=== PATIENT | male | born 1955 | race Asian ===

== ENCOUNTER → 2018-04-07 | Day surgery (SDC) | payer MEDICARE ==
[~2018-04-07] MED LIST: ALDACTONE25 MG PO; APAP500 PO; ASPIR 8181 MG PO; ASPIRIN325 PO; ATORVASTATIN CA40 MG PO; CARVEDILOL12.5 MG PO; CARVEDILOL25 MG PO; CENTRUM SILVER1 EAC2 PO; COZAAR 50 MG TA50 M2 PO; DIABETA 2.5MG2.5 MG PO; DIABETA 5MG TABL5 MG PO; GLYBURIDE 2.52.5 MG PO; GLYBURIDE 5 MG T5 M1 PO; HYDRALAZINE 2525 M1 PO; HYDROCODONE-AP1 EAC6 PO; IMDUR 30 MG TAB30 M1 PO; JANUVIA25 MG PO; LASIX 20 MG TAB20 MG PO; LASIX 40 MG TAB40 M1 PO; LASIX 40 MG TAB40 M2 PO; LISINOPRIL5 MG PO; MULTIVITAMIN PO; MULTIVITAMINS PO; NEURONTIN100 MG PO; NITROGLYCERIN0.4 MG SUBLING; NORCO 5-325 TA1 EACH PO; NORVASC5 MG PO; NOVOLOG100 UNIT/1 SUBQ; PACERONE 200 M200 MG PO; PANTOPRAZOLE SO40 M1 PO; PLAVIX 75 MG TA75 M1 PO; PROTONIX40 M1 PO; VITAMIN D2000 UNIT PO
[2018-04-07 07:04] LABS: HEMATOCRIT 39.9 % (42.0-52.0); HEMOGLOBIN 13.6 gm/dL (14.0-18.0); MCH 31.5 pg (26.0-34.0); MCV 92.7 fL (80.0-100.0); MPV 7.4 fl. (7.2-11.1); RBC 4.31 mil/uL (4.50-6.00); RDW-CV 14.9 % (10.5-14.5); WBC 7.3 thou/uL (4.0-11.0)
[2018-04-07 07:11] LABS: CREATININE 4.9 mg/dL (0.6-1.3); POTASSIUM 4.3 mmol/L (3.5-5.1)
[2018-04-07 07:16] LABS: ALBUMIN 4.2 g/dL (3.4-5.0); TOTAL BILIRUBIN 0.4 mg/dL (<0.1-1.0); TOTAL PROTEIN 8.2 g/dL (6.4-8.2)
--- NOTE | 2018-04-07 16:31 | EKG ---
[place] [address] ELECTROCARDIOGRAM REPORT Name: FLOYDBRENDAN SEGURASONIA P Room: [facility]#: [id number] Admission: 04/07/18 Attend Phys: Nic Mijares MD Discharge: Date of : 57 Report #: [id number] THIS REPORT FOR: //name// [facility] Test Date: 2018-04-07 Test Time: 07:40:41 Pat Name: SONIA BARRIENTOS Department: Room: Gender: M Supervisor Dock: : 1955 Requested By: Nic Mijares Order Number: [id number] Reading MD: Daquan Fonseca Measurements Intervals [place] Rate: 62 P: 70 [place]: 182 QRS: 81 QRSD: 97 T: 187 QT: 398 QTc: 405 Interpretive Statements Sinus rhythm Borderline right axis deviation LVH w/ repol abnormalities, possible ischemia Compared to ECG 09/04/2016 22:47:39 Possible ischemia now present Early repolarization no longer present Electronically Signed On 04-07-2018 16:31:05 CDT by Daquan Fonseca [email or web address] <ELECTRONICALLY SIGNED> By: Daquan Fonseca MD, [facility] 04/07/18 1631 0740 9 Daquan Fonseca MD, [facility] /EPI
--- NOTE | 2018-04-11 18:06 | PATH ---
[address] [address] PATHOLOGY RPT PROCEDURE Name: SONIA BARRIENTOS Room: [facility]#: [id number] Admission: 04/07/18 Date of : 57 Discharge: Report #: [id number] Path Case #: [id number] [facility] Accession Number: [id number] . 01 Material submitted: . RIGHT UPPER ARM MOLE . 01 Clinical history: . ESRD . 02 Diagnosis: Right upper arm mole: - Polypoid, pigmented intradermal nevus, margins free of involvement through planes of sections examined. (CANDI:pit 04/11/2018) QTP/04/11/2018 . 02 Electronically signed: . Jeremy Hernández MD, Pathologist NPI- [id number] . 01 Gross description: . The specimen is received in formalin, labeled "Sonia Barrientos, right upper arm mole", consist of a 0.8 x 0.4 cm townsend skin biopsy. The skin surface has a 0.5 x 0.4 x 0.3 cm dark brown firm nodule. The specimen is inked black, bisected and entirely submitted in A1. . . ([facility]; 04/07/2018) SHS/SHS . 02 Pathologist provided ICD-10: D22.61 . 02 CPT . 863502 Performed at: 01 [facility] [address] [place] [address] [address], [place] [id number] MD Balwinder Orellana MD Phone: [phone] Performed at: [address] [address] [address], [place], [place] [id number] MD Jeremy Hernández MD Phone: [phone]
--- NOTE | 2018-04-28 17:34 | OP ---
[address] [address] OPERATIVE REPORT Name: SONIA BARRIENTOS Room: [facility]#: [id number] Admission: 04/07/18 Attend Phys: Nic Mijares MD Discharge: Date of : 57 Report #: [id number] THIS REPORT FOR: //name// CC: Jhony Anayeli Mijares DATE OF SERVICE: 04/07/2018 PREOPERATIVE DIAGNOSES: 1. End-stage renal disease. 2. Mole, right upper arm. POSTOPERATIVE DIAGNOSES: 1. End-stage renal disease. 2. Mole, right upper arm. PROCEDURE: 1. Brachiocephalic AV fistula formation, right upper extremity. 2. Excision of mole, right arm. SURGEON: Nic Mijares MD FINAL INSTALLER INSPECTOR: Boaz Hong. COMPLICATIONS: None. ESTIMATED BLOOD LOSS: 10 mL. SPECIMENS: Includes mole excision to pathology. ANESTHESIA: General. INDICATIONS FOR PROCEDURE: The patient is a very pleasant 62-year-old male who presents with end-stage renal disease and a mole on his right arm. We plan to proceed with AV fistula placement and mole excision today. Informed consent was obtained from the patient with risks including but not limited to bleeding, infection, need for further surgery, pain, , heart attack, stroke, need for further resection if the mole comes back malignant. The patient understood these risks and was agreeable to proceed. DESCRIPTION OF PROCEDURE: The patient was taken to the OR and placed in supine position. After adequate general anesthesia was initiated, timeout was performed. Right upper extremity was prepped and draped in usual sterile fashion. I created a transverse incision just above the antecubital fossa. Sharp and blunt dissection were carried down to cephalic vein, [place] [address] OPERATIVE REPORT Name: SONIA BARRIENTOS Room: [facility]#: [id number] Admission: 04/07/18 Attend Phys: Nic Mijares MD Discharge: Date of : 57 Report #: [id number] adequate for fistula formation. Sharp and blunt dissection were carried on the brachial artery, was controlled proximally and distally with vessel loops. I ligated the vein distally with silk ties and clips. I transposed the vein over on to the artery, spatulating the end of the branch point. I created a longitudinal arteriotomy in the brachial artery. I created an end-to-side anastomosis with the vein using a running 6-0 Prolene suture. At the completion of anastomosis, there was adequate hemostasis and excellent blood flow in the vein with a palpable thrill running at the patient's arm. I irrigated the wound with antibiotic saline, closed the wound in multiple layers using 3-0 Vicryl and Stratafix for the skin. Incision was dressed with Dermabond. I then turned my attention to the mole. I excised the mole with an elliptical incision, full thickness of skin. I passed the mole off the field as a specimen. I controlled bleeding with electrocautery. I closed the incision with a single Monocryl stitch. The patient tolerated above procedures well and was taken alert and awake to recovery room in good condition with palpable thrill in his fistula. All needle, instrument counts were correct at the end of the case. <ELECTRONICALLY SIGNED> By: Fred James DO 04/28/18 1734 1002 1101Rad Mijares MD /nt
== END | disposition home or self-care (01) ==
LOC: M.SUR 06:09
PROVIDERS: Surgery Vascular Surgery
DX: I13.2 Hypertensive heart and chronic kidney disease with heart failure and with stage 5 chronic kidney disease, or end stage renal disease (principal); N18.6 End stage renal disease; D23.61 Other benign neoplasm of skin of right upper limb, including shoulder; E11.22 Type 2 diabetes mellitus with diabetic chronic kidney disease; I25.2 Old myocardial infarction; I25.10 Atherosclerotic heart disease of native coronary artery without angina pectoris; I50.9 Heart failure, unspecified; Z79.899 Other long term (current) drug therapy; Z79.82 Long term (current) use of aspirin; Z98.890 Other specified postprocedural states

== ENCOUNTER → 2018-07-03 | Outpatient (CLI) | payer MEDICARE ==
[~2018-07-03] VITALS: Ht 162.6 cm; Wt 59.0 kg
[2018-07-03 13:12] LABS: HEMATOCRIT 33.2 % (42.0-52.0); HEMOGLOBIN 11.2 gm/dL (14.0-18.0); MCH 31.9 pg (26.0-34.0); MCHC 33.9 g/dL (28.0-37.0); MCV 94.1 fL (80.0-100.0); MPV 7.8 fl. (7.2-11.1); RBC 3.53 mil/uL (4.50-6.00); RDW-CV 14.8 % (10.5-14.5); WBC 8.5 thou/uL (4.0-11.0)
[2018-07-03 13:15] VITALS: BP 124/56
[2018-07-03 13:22] LABS: PROTIME 10.7 Seconds (9.20-11.50)
[2018-07-03 13:24] LABS: CALCIUM 9.5 mg/dL (8.5-10.1); CREATININE 5.8 mg/dL (0.6-1.3); POTASSIUM 4.9 mmol/L (3.5-5.1)
[2018-07-03 13:29] LABS: ALBUMIN 3.9 g/dL (3.4-5.0); TOTAL BILIRUBIN 0.5 mg/dL (<0.1-1.0); TOTAL PROTEIN 7.6 g/dL (6.4-8.2)
--- NOTE | 2018-07-05 08:48 | OP ---
[address] [address] OPERATIVE REPORT Name: SONIA BARRIENTOS [id number] Admission: 07/03/18 Attend Phys: Pravin Hammonds DO Discharge: Date of : 57 Report #: [id number] THIS REPORT FOR: //name// CC: Pravin Hammonds Jhony Guadalupe DATE OF SERVICE: 07/03/2018 PREOPERATIVE DIAGNOSIS: End-stage renal disease with right upper extremity swelling, status post arteriovenous fistula creation. POSTOPERATIVE DIAGNOSIS: End-stage renal disease with right upper extremity swelling, status post arteriovenous fistula creation. OPERATION: 1. Ultrasound-guided antegrade access to the right upper extremity brachiocephalic fistula. 2. Right upper extremity fistulogram. 3. Superior vena cavogram. 4. Angioplasty of the right brachiocephalic vein. SURGEON: Pravin Hammonds DO BUILDING ECONOMIST: EVAN Perez ANESTHESIA: Sedation with local for approximately 30 minutes at my discretion. IMPLANTS: None. SPECIMENS: None. COMPLICATIONS: None. FINDINGS: Fistulogram with reflux fistulogram demonstrated patent fistula circuit without significant stenosis. He had a few small collateral side branches emanating from the mid portion of the cephalic vein, but this was not flow limiting and not diverting too much competitive flow away. His cephalic arch and subclavian vein were patent without significant stenosis. He had a right IJ tunneled dialysis catheter in place. 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 Following angioplasty of the innominate vein occlusion, he had good antegrade flow without any reflux up the IJ. There was mild residual stenosis. His arm already had reduced swelling. CLINICAL HISTORY: The patient is a 62-year-old man with end-stage renal disease, currently dialyzing partially through [place] [address] OPERATIVE REPORT Name: SONIA BARRIENTOS Room: [facility]#: [id number] Admission: 07/03/18 Attend Phys: Pravin Hammonds DO Discharge: Date of : 57 Report #: [id number] catheter and one cannulation of the right upper extremity fistula. He has significant right upper extremity swelling that is causing pain and difficulty with cannulation. He was brought in today for fistulogram for intervention. DESCRIPTION OF PROCEDURE: After informed consent was obtained, the patient was taken to the operating room and placed on the OR bed in supine position. He was administered sedation by the nurse at my discretion. This was for a total of about 30 minutes. Right upper extremity was prepped and draped in the usual sterile fashion. A full timeout was performed identifying correct patient and procedure. Using ultrasound guidance, the brachiocephalic fistula in the right arm was accessed and these ultrasound images were preserved. This was done after anesthetizing the skin and subcutaneous tissues with lidocaine anesthetic. Using Seldinger technique, a microwire and microsheath were placed. I then performed the right upper extremity fistulogram with reflux fistulogram with the findings noted above. I then exchanged out for a 7-Bhutanese sheath over Glidewire Advantage. I positioned the Glidewire Advantage into the inferior vena cava. Followup imaging confirmed intraluminal position of the inferior vena cava and the wire was replaced. I then performed the serial angioplasties of the innominate vein occlusion, first with a 10 mm Altheimer balloon, subsequently with a 12 mm and 14 mm Allis balloons. This had a good result with minimal residual stenosis and good antegrade flow through the innominate vein. There was no further reflux of contrast up the internal jugular vein. His arm was already less tense. At this point, satisfied with the result, the wire and the sheath were removed and a 4-0 Monocryl pursestring suture was placed at the access site. Manual pressure was held for 5 minutes. Once hemostasis was assured, sterile dressing was applied and a light Tim wrap was applied from the hand to the upper arm. Tim wrap can be removed along with the dressing at dialysis tomorrow. I have encouraged them to try and access the fistula with both needles. Hopefully, they will be able to continue access with the fistula and then will be able to remove the catheter. He would likely require future intervention of his innominate vein because it will likely give recurrent stenosis. <ELECTRONICALLY SIGNED> By: Pravin Hammonds DO 07/05/18 0848 1545 1746Aesha Hammonds DO /nt
== END | disposition home or self-care (01) ==
LOC: M.INT 12:01
PROVIDERS: Surgery
DX: T82.590A Other mechanical complication of surgically created arteriovenous fistula, initial encounter (principal); I13.2 Hypertensive heart and chronic kidney disease with heart failure and with stage 5 chronic kidney disease, or end stage renal disease; E11.22 Type 2 diabetes mellitus with diabetic chronic kidney disease; N18.6 End stage renal disease; I50.9 Heart failure, unspecified; E78.5 Hyperlipidemia, unspecified; Z95.1 Presence of aortocoronary bypass graft; Z98.41 Cataract extraction status, right eye; Z98.42 Cataract extraction status, left eye; Z98.890 Other specified postprocedural states; Z82.49 Family history of ischemic heart disease and other diseases of the circulatory system; Z79.899 Other long term (current) drug therapy

== ENCOUNTER 2018-07-06 14:36 | Emergency (ER) | payer MEDICARE ==
[~2018-07-06] VITALS: Ht 162.6 cm; Wt 61.8 kg
[2018-07-06 15:07] LABS: ABSOLUTE BASOPHILS 0.1 thou/uL (0.0-0.2); ABSOLUTE EOSINOPHILS 0.3 thou/uL (0.0-0.7); ABSOLUTE MONOCYTES 0.5 thou/uL (0.0-1.2); ABSOLUTE NEUTROPHILS 4.9 thou/uL (1.6-8.1); BASOPHILS 1.3 %; EOSINOPHILS 4.4 %; LYMPHOCYTES 15.2 %; MCH 31.9 pg (26.0-34.0); MCHC 34.3 g/dL (28.0-37.0); MONOCYTES 7.3 %; MPV 7.5 fl. (7.2-11.1); NUCLEATED RBCS 0 /100WBC; PLATELET COUNT* 169 thou/uL (150-400); POLYS 71.8 %; RBC 3.44 mil/uL (4.50-6.00); RDW-CV 14.6 % (10.5-14.5); WBC 6.9 thou/uL (4.0-11.0)
[2018-07-06 15:15] LABS: ANION GAP 3 mmol/L (7-16); BUN 10 mg/dL (7-18); CALCIUM 9.5 mg/dL (8.5-10.1); CHLORIDE 99 mmol/L (98-107); CO2 34 mmol/L (21-32); CREATININE 3.2 mg/dL (0.6-1.3); GLUCOSE 158 mg/dL (70-99); POTASSIUM 4.2 mmol/L (3.5-5.1); SODIUM 136 mmol/L (136-145)
[2018-07-06 15:25] LABS: ALBUMIN 3.9 g/dL (3.4-5.0); ALKALINE PHOSPHATASE 72 U/L (46-116); MAGNESIUM 1.8 mg/dL (1.8-2.4); SGOT 22 U/L (15-37); SGPT 33 U/L (30-65); TOTAL BILIRUBIN 0.6 mg/dL (<0.1-1.0); TOTAL PROTEIN 7.7 g/dL (6.4-8.2); TROPONIN-I LEVEL <0.06 ng/mL (<0.06)
--- NOTE | 2018-07-06 16:41 | EKG ---
[place] [address] ELECTROCARDIOGRAM REPORT Name: SONIA BARRIENTOS Room: [facility]#: [id number] Admission: 07/06/18 Attend Phys: Discharge: Date of : 57 Report #: [id number] THIS REPORT FOR: //name// [facility] ED Test Date: 2018-07-06 Test Time: 14:39:23 Pat Name: SONIA BARRIENTOS Department: Room: Gender: Nurse Infection Control: Cristofer WILKS : 1955 Requested By: Peri Pandya Order Number: [id number] MD: Cm Brown Measurements Intervals [place] Rate: 71 P: 81 NM: 183 QRS: 72 QRSD: 94 T: 165 QT: 375 QTc: 408 Interpretive Statements Sinus rhythm Probable left atrial enlargement Probable LVH with secondary repol abnrm Compared to ECG 04/07/2018 07:40:41 Possible ischemia no longer present Electronically Signed On 07-06-2018 16:41:27 CDT by Cm Brown [email or web address] <ELECTRONICALLY SIGNED> By: Cm Brown MD, FACC 07/06/18 1641 1439 1439 Cm Brown MD, [facility] /EPI
[2018-07-06 16:51] LABS: URINE BILIRUBIN NEGATIVE (Negative); URINE BLOOD TRACE (Negative); URINE CLARITY CLEAR; URINE COLOR YELLOW; URINE GLUCOSE-RANDOM 1+ (Negative); URINE KETONES NEGATIVE (Negative); URINE LEUKOCYTES-REFLEX NEGATIVE (Negative); URINE NITRITE-REFLEX NEGATIVE (Negative); URINE PROTEIN 2+ (Negative); URINE SPECIFIC GRAVITY 1.015 (1.005-1.030); URINE UROBILINOGEN 0.2 E.U./dl (0.2-1.0)
[2018-07-06 17:11] LABS: CRYSTALS None Seen /LPF (None Seen); HYALINE CASTS 0-3 Few /LPF (None Seen); MUCUS None Seen strn/LPF (None Seen); SQUAMOUS NONE SEEN /LPF (0-3); URINE RBC 0-2 Rare /HPF (0-2)
[2018-07-06 17:12] LABS: BACTERIA-REFLEX None Seen /HPF (None Seen); URINE WBC-REFLEX None Seen /HPF (0-5)
[2018-07-06 17:32] VITALS: BP 134/53
== END 2018-07-06 17:33 | disposition home or self-care (01) ==
LOC: M.ERS 14:36
PROVIDERS: Physician Assistant Surgical
DX: R53.1 Weakness (principal); R06.02 Shortness of breath; E78.5 Hyperlipidemia, unspecified; I12.9 Hypertensive chronic kidney disease with stage 1 through stage 4 chronic kidney disease, or unspecified chronic kidney disease; E11.22 Type 2 diabetes mellitus with diabetic chronic kidney disease; N18.9 Chronic kidney disease, unspecified; Z95.1 Presence of aortocoronary bypass graft

== ENCOUNTER → 2019-04-03 | Outpatient (CLI) | payer MEDICARE ==
[2019-04-03 08:48] LABS: CHOLESTEROL 110 mg/dL (<200); HDL CHOLESTEROL 34 mg/dL (>40); LDL CHOLESTEROL 47 mg/dL (<100); SGPT 45 U/L (30-65); TC:HDL 3.2 Ratio (Not establshd); TRIGLYCERIDE 147 mg/dL (<150); VLDL 29 mg/dL (<40)
[2019-04-03 09:04] LABS: SERUM ASSESSMENT Clear
== END ==
LOC: M.LAB 08:01
PROVIDERS: Internal Medicine Interventional Cardiology
DX: I25.10 Atherosclerotic heart disease of native coronary artery without angina pectoris (principal); E78.2 Mixed hyperlipidemia

== ENCOUNTER 2019-10-30 15:18 | Emergency (ER) | payer MEDICARE ==
[~2019-10-30] VITALS: Ht 162.6 cm; Wt 54.4 kg
[2019-10-30 15:56] LABS: HEMATOCRIT 34.8 % (42.0-52.0); HEMOGLOBIN 12.1 gm/dL (14.0-18.0); MCH 31.7 pg (26.0-34.0); MCHC 34.8 g/dL (28.0-37.0); MCV 90.9 fL (80.0-100.0); MPV 7.1 fl. (7.2-11.1); RBC 3.82 mil/uL (4.50-6.00); RDW-CV 15.7 % (10.5-14.5); WBC 5.9 thou/uL (4.0-11.0)
[2019-10-30 16:23] VITALS: BP 184/67
== END 2019-10-30 16:25 | disposition home or self-care (01) ==
LOC: M.ERS 15:18
PROVIDERS: Personal Emergency Response Attendant
DX: T82.838A Hemorrhage due to vascular prosthetic devices, implants and grafts, initial encounter (principal); I11.0 Hypertensive heart disease with heart failure; E11.9 Type 2 diabetes mellitus without complications; E78.5 Hyperlipidemia, unspecified; Z95.1 Presence of aortocoronary bypass graft; Z98.890 Other specified postprocedural states; Y92.89 Other specified places as the place of occurrence of the external cause

== ENCOUNTER 2020-06-24 16:18 | Inpatient (IN) | payer MEDICARE ==
[~2020-06-24] VITALS: Ht 160 cm; Wt 62.4 kg
--- NOTE | ~2020-06-24 | CON ---
[address] [address] CONSULTATION Name: SONIA BARRIENTOS Room: [address] IN .R.#: [id number] Admission: 06/24/20 Attend Phys: Radha Parker MD Discharge: Date of : 57 Report #: [id number] THIS REPORT FOR: //name// cc: Jhony Guadalupe MD, Khanh MD ~ THIS REPORT FOR: //name// CONSULTING PHYSICIAN: Dr. Parker. REASON FOR CONSULTATION: End-stage kidney disease. HISTORY OF PRESENT ILLNESS: A 64-year-old gentleman with a history of end-stage kidney disease, who had dialysis yesterday, comes in with a viral pneumonitis and diarrhea. He was tested for COVID-19 and was found to be positive. His dialysis unit was informed. He has been started on empiric steroids and is currently satting at 95% on room air. REVIEW OF SYSTEMS: Constitutional, psych, heme, eyes, ENT, respiratory, cardiac, GI, , endocrine, all negative except as documented above. PAST MEDICAL HISTORY: End-stage kidney disease, on hemodialysis, non-insulin dependent diabetes, hypertension, dyslipidemia, history of CABG, history of retinal detachment, history of shingles. FAMILY HISTORY: Not pertinent in this 64-year-old gentleman. SOCIAL HISTORY: No tobacco. CURRENT MEDICATIONS: Reviewed. PHYSICAL EXAMINATION: VITAL SIGNS: Blood pressure 126/66, pulse 76, respirations 16, temperature 35.9. GENERAL: The patient is not in any distress. He was not directly examined as he is in COVID-19 enhanced respiratory precautions and with the need to preserve PPE and minimize exposure during this pandemic, he was not physically examined. LABORATORY DATA: Sodium 136, potassium 4.4, chloride 97, bicarbonate 30, BUN 33, creatinine 5.4, glucose 319, calcium 8.3, phosphorus 6. White cell count of 3.6, hemoglobin 9.8, platelets 86. ASSESSMENT: 1. End-stage kidney disease, on hemodialysis Tuesdays, , Saturdays at the [facility]. 2. COVID-19 pneumonia. 3. Non-insulin dependent diabetes. 4. [place] [address] CONSULTATION Name: SONIA BARRIENTOS Room: [address] IN [facility].#: [id number] Admission: 06/24/20 Attend Phys: Radha Parker MD Discharge: Date of : 57 Report #: [id number] 5. History of retinal detachment. 6. Coronary artery disease with history of coronary artery bypass graft. 7. Vitamin D deficiency. PLAN: 1. No acute indications for dialysis today. 2. Thrombocytopenia, defer to Internal Medicine. 3. COVID-19 pneumonia, being managed by Internal Medicine. 4. He is on gabapentin 100 mg 3 times a day. Suggest dosing this once a day. This can be dosed as 300 mg daily and can be given after dialysis on his dialysis days, so that is not removed with dialysis. 5. His dialysis unit was informed of his COVID-19 positivity. He will likely need to be arranged to go to one of the isolation dialysis units for COVID-19 positive patients upon discharge. Case management can help arrange this. We will follow for dialysis needs. Thank you for requesting my opinion in the care and management of this patient. By: 1309 1332Abisana Calix MD /nt
[2020-06-24 16:23] VITALS: BP 126/75
[2020-06-24 17:57] LABS: ABSOLUTE LYMPHOCYTES 0.5 thou/uL (0.8-5.3); ABSOLUTE MONOCYTES 0.5 thou/uL (0.0-1.2); ABSOLUTE NEUTROPHILS 2.5 thou/uL (1.6-8.1); BASOPHILS 0.6 %; HEMATOCRIT 27.9 % (42.0-52.0); HEMOGLOBIN 9.8 gm/dL (14.0-18.0); LYMPHOCYTES 14.2 %; MCH 30.9 pg (26.0-34.0); MCHC 35.2 g/dL (28.0-37.0); MCV 87.7 fL (80.0-100.0); MONOCYTES 13.6 %; MPV 7.8 fl. (7.2-11.1); NUCLEATED RBCS 0 /100WBC; PLATELET COUNT* 86 thou/uL (150-400); POLYS 71.6 %; RBC 3.18 mil/uL (4.50-6.00); RDW-CV 13.8 % (10.5-14.5); WBC 3.6 thou/uL (4.0-11.0)
[2020-06-24 18:04] LABS: APTT 33.1 Seconds (25.0-31.3); PROTIME 10.7 Seconds (9.20-11.50)
[2020-06-24 18:05] LABS: CALCIUM 8.7 mg/dL (8.5-10.1); CREATININE 4.3 mg/dL (0.6-1.3)
[2020-06-24 18:15] LABS: ALBUMIN 3.4 g/dL (3.4-5.0); MAGNESIUM 1.9 mg/dL (1.8-2.4); TOTAL BILIRUBIN 0.7 mg/dL (<0.1-1.0)
[2020-06-24 18:19] LABS: POTASSIUM 2.8 mmol/L (3.5-5.1)
[2020-06-25] VITALS (7 sets, daily range): BP systolic 96–172; BP diastolic 53–87
[2020-06-25 10:31] LABS: CALCIUM 8.3 mg/dL (8.5-10.1)
[2020-06-25 10:33] LABS: MAGNESIUM 2.2 mg/dL (1.8-2.4); POTASSIUM 4.4 mmol/L (3.5-5.1)
[2020-06-25 10:38] LABS: CREATININE 5.4 mg/dL (0.6-1.3)
--- NOTE | 2020-06-25 17:45 | EKG ---
[place] [address] ELECTROCARDIOGRAM REPORT Name: SONIA BARRIENTOS Room: [address] ADM [place] .R.#: [id number] Admission: 06/24/20 Attend Phys: Radha Parker, Discharge: Date of : 57 Date of Service: 06/24/20 1754 Report #: [id number] THIS REPORT FOR: //name// [facility] ED Test Date: 2020-06-24 Test Time: 17:54:55 Pat Name: SONIA BARRIENTOS Department: Room: [facility] Gender: M Butcherette: CCD : 1955 Requested By: Rad Hoyos Order Number: [id number] MD: Daquan Fonseca Measurements Intervals [place] Rate: 80 P: 62 [place]: 174 QRS: 75 QRSD: 92 T: 153 QT: 374 QTc: 432 Interpretive Statements Sinus rhythm Probable left atrial enlargement Left ventricular hypertrophy ST segment depression diffusely. Consider repolarization abnormality versus ischemia Baseline wander in lead(s) II,III,aVF Compared to ECG 07/06/2018 14:39:23 No significant changes Electronically Signed On 06-25-2020 17:45:48 CDT by Daquan Fonseca [email or web address] <ELECTRONICALLY SIGNED> By: Daquan Fonseca MD, FACC 06/25/20 1745 53 53 Daquan Fonseca MD, FACC /EPI
[2020-06-26 00:33] VITALS: BP 135/51
[2020-06-26 04:42] VITALS: BP 156/67
[2020-06-26 04:53] LABS: HEMATOCRIT 28.3 % (42.0-52.0); HEMOGLOBIN 9.9 gm/dL (14.0-18.0); MCH 31.3 pg (26.0-34.0); MCHC 34.9 g/dL (28.0-37.0); MCV 89.5 fL (80.0-100.0); MPV 8.8 fl. (7.2-11.1); RBC 3.17 mil/uL (4.50-6.00); RDW-CV 13.4 % (10.5-14.5); WBC 9.1 thou/uL (4.0-11.0)
[2020-06-26 05:16] LABS: ALBUMIN 3.1 g/dL (3.4-5.0); CALCIUM 9.1 mg/dL (8.5-10.1); MAGNESIUM 2.4 mg/dL (1.8-2.4); POTASSIUM 3.8 mmol/L (3.5-5.1); TOTAL BILIRUBIN 0.3 mg/dL (<0.1-1.0); TOTAL PROTEIN 6.7 g/dL (6.4-8.2)
[2020-06-26 05:17] LABS: CREATININE 7.4 mg/dL (0.6-1.3)
[2020-06-26 08:00] VITALS: BP 140/67
[2020-06-26] MEDS ORDERED: PREDNISONE 10 M10 MG PO (10:27)
[2020-06-26] MEDS ORDERED: AZITHROMYCIN500 MG PO (10:27)
[2020-06-26 11:47] VITALS: BP 140/67
[2020-06-26 14:23] VITALS: BP 140/67
== END 2020-06-26 15:05 | disposition home or self-care (01) | DRG 177 ==
LOC: M.ERS 16:18 → M.2W 17:41 → M.TBA-ER 17:41 → M.2W 06-25 00:30
PROVIDERS: Family Medicine; Internal Medicine; ADMIT Internal Medicine; ATTEND Internal Medicine
PROC: 5A1D70Z Performance of Urinary Filtration, Intermittent, Less than 6 Hours Per Day (ICD-10-PCS; principal; 2020-06-26)
DX: U07.1 COVID-19 (principal); N18.6 End stage renal disease; J12.89 Other viral pneumonia; I12.0 Hypertensive chronic kidney disease with stage 5 chronic kidney disease or end stage renal disease; E11.22 Type 2 diabetes mellitus with diabetic chronic kidney disease; R77.8 Other specified abnormalities of plasma proteins; E87.6 Hypokalemia; E78.5 Hyperlipidemia, unspecified; B34.9 Viral infection, unspecified; I25.10 Atherosclerotic heart disease of native coronary artery without angina pectoris; E55.9 Vitamin D deficiency, unspecified; E86.9 Volume depletion, unspecified; Z95.1 Presence of aortocoronary bypass graft; Z79.82 Long term (current) use of aspirin; Z79.899 Other long term (current) drug therapy; Z99.2 Dependence on renal dialysis; R19.7 Diarrhea, unspecified

== ENCOUNTER 2020-06-28 03:51 | Inpatient (IN) | payer MEDICARE ==
[~2020-06-28] VITALS: Ht 162.6 cm; Wt 62.6 kg
[~2020-06-28 03:51] MED LIST changes: +AZITHROMYCIN500 MG PO; +PREDNISONE 10 M10 MG PO
[2020-06-28 04:09] VITALS: BP 152/64
[2020-06-28 05:01] LABS: HEMATOCRIT 23.7 % (42.0-52.0); HEMOGLOBIN 8.3 gm/dL (14.0-18.0); MCH 31.6 pg (26.0-34.0); MCHC 34.9 g/dL (28.0-37.0); MCV 90.6 fL (80.0-100.0); MPV 8.3 fl. (7.2-11.1); NUCLEATED RBCS 0 /100WBC; PLATELET COUNT* 112 thou/uL (150-400); RBC 2.62 mil/uL (4.50-6.00); RDW-CV 13.5 % (10.5-14.5); WBC 7.7 thou/uL (4.0-11.0)
[2020-06-28 05:05] LABS: BE 1.2 mmol/L (-2 to +3); PCO2 32.3 mmHg (35.0-45.0); PO2 108.2 mmHg (75.0-100.0); pH 7.494 (7.340-7.450)
[2020-06-28 05:20] LABS: CALCIUM 7.6 mg/dL (8.5-10.1); CREATININE 7.1 mg/dL (0.6-1.3); POTASSIUM 3.4 mmol/L (3.5-5.1)
[2020-06-28 05:25] LABS: ALBUMIN 2.5 g/dL (3.4-5.0); MAGNESIUM 1.9 mg/dL (1.8-2.4); TOTAL BILIRUBIN 0.5 mg/dL (<0.1-1.0); TOTAL PROTEIN 5.9 g/dL (6.4-8.2)
[2020-06-28 07:17] LABS: ABSOLUTE LYMPHOCYTES 0.2 thou/uL (0.8-5.3); ABSOLUTE MONOCYTES 0.3 thou/uL (0.0-1.2); ABSOLUTE NEUTROPHILS 7.2 thou/uL (1.6-8.1)
[2020-06-28 07:18] LABS: HYPOCHROMASIA 1+; PLATELET ESTIMATE DECREASED
[2020-06-28 09:00] VITALS: BP 149/73
[2020-06-28 10:56] LABS: URINE BILIRUBIN NEGATIVE (Negative); URINE BLOOD 2+ (Negative); URINE CLARITY CLEAR; URINE COLOR YELLOW; URINE GLUCOSE-RANDOM 1+ (Negative); URINE KETONES NEGATIVE (Negative); URINE LEUKOCYTES-REFLEX NEGATIVE (Negative); URINE NITRITE-REFLEX NEGATIVE (Negative); URINE PROTEIN 2+ (Negative); URINE SPECIFIC GRAVITY 1.025 (1.005-1.030); URINE UROBILINOGEN 0.2 E.U./dl (0.2-1.0)
[2020-06-28 11:03] LABS: SQUAMOUS 0-3 Few /LPF (0-3)
[2020-06-28 11:04] LABS: CRYSTALS None Seen /LPF (None Seen); FINE GRANULAR CASTS 0-3 Few /LPF (None Seen); HYALINE CASTS 0-3 Few /LPF (None Seen); MUCUS 0-3 Light strn/LPF (None Seen); URINE RBC 0-2 Rare /HPF (0-2); URINE WBC-REFLEX 0-5 Rare /HPF (0-5)
[2020-06-28 13:30] VITALS: BP 126/63
[2020-06-28 13:50] VITALS: BP 149/73
[2020-06-29] VITALS: BP 134/67
[2020-06-29 04:00] VITALS: BP 128/68
[2020-06-29 04:58] LABS: HEMOGLOBIN 10.1 gm/dL (14.0-18.0); MCH 31.4 pg (26.0-34.0); MCHC 34.9 g/dL (28.0-37.0); MCV 90.1 fL (80.0-100.0); MPV 9.1 fl. (7.2-11.1); RBC 3.22 mil/uL (4.50-6.00); RDW-CV 13.7 % (10.5-14.5); WBC 8.4 thou/uL (4.0-11.0)
[2020-06-29 05:40] LABS: ALBUMIN 2.5 g/dL (3.4-5.0); CALCIUM 8.8 mg/dL (8.5-10.1); MAGNESIUM 2.4 mg/dL (1.8-2.4); TOTAL BILIRUBIN 0.6 mg/dL (<0.1-1.0); TOTAL PROTEIN 6.6 g/dL (6.4-8.2)
[2020-06-29 05:41] LABS: CREATININE 5.8 mg/dL (0.6-1.3); POTASSIUM 4.6 mmol/L (3.5-5.1)
[2020-06-29 09:30] VITALS: BP 124/60
[2020-06-29 12:08] VITALS: BP 101/42
[2020-06-29 17:24] VITALS: BP 101/50
[2020-06-30] VITALS: BP 109/55
[2020-06-30 03:05] LABS: HIV-1/HIV-2 ANTIBODY Non Reactive (Non Reactive)
[2020-06-30 04:00] VITALS: BP 118/65
[2020-06-30 04:55] LABS: HEMATOCRIT 27.2 % (42.0-52.0); HEMOGLOBIN 9.3 gm/dL (14.0-18.0); MCH 30.6 pg (26.0-34.0); MCHC 34.1 g/dL (28.0-37.0); MCV 89.8 fL (80.0-100.0); MPV 8.7 fl. (7.2-11.1); RBC 3.02 mil/uL (4.50-6.00); RDW-CV 14.1 % (10.5-14.5); WBC 11.3 thou/uL (4.0-11.0)
[2020-06-30 05:15] LABS: ALBUMIN 2.2 g/dL (3.4-5.0); CALCIUM 8.8 mg/dL (8.5-10.1); MAGNESIUM 2.7 mg/dL (1.8-2.4); POTASSIUM 4.6 mmol/L (3.5-5.1); TOTAL BILIRUBIN 0.6 mg/dL (<0.1-1.0)
[2020-06-30 05:16] LABS: CREATININE 7.8 mg/dL (0.6-1.3)
[2020-06-30 09:04] LABS: URINE BILIRUBIN NEGATIVE (Negative); URINE BLOOD TRACE (Negative); URINE CLARITY CLEAR; URINE COLOR YELLOW; URINE GLUCOSE-RANDOM TRACE (Negative); URINE KETONES NEGATIVE (Negative); URINE LEUKOCYTES-REFLEX NEGATIVE (Negative); URINE NITRITE-REFLEX NEGATIVE (Negative); URINE PROTEIN 2+ (Negative); URINE SPECIFIC GRAVITY 1.025 (1.005-1.030); URINE UROBILINOGEN 0.2 E.U./dl (0.2-1.0)
[2020-06-30 09:18] LABS: SQUAMOUS 0-3 Few /LPF (0-3)
[2020-06-30 09:19] LABS: BACTERIA-REFLEX >30 Many /HPF (None Seen); URINE RBC 0-2 Rare /HPF (0-2); URINE WBC-REFLEX None Seen /HPF (0-5)
[2020-06-30 09:20] LABS: FINE GRANULAR CASTS 0-3 Few /LPF (None Seen); HYALINE CASTS 4-10 Moderate /LPF (None Seen); MUCUS 0-3 Light strn/LPF (None Seen)
[2020-06-30 09:21] LABS: AMORPHOUS URATES Few /LPF (None Seen); CRYSTALS None Seen /LPF (None Seen)
[2020-06-30 11:57] VITALS: BP 114/61
--- NOTE | 2020-06-30 13:34 | EKG ---
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: IMELDA : 1955 Requested By: Clifton Beard Order Number: [id number] Reading MD: Fred Oliva Measurements Intervals [place] Rate: 94 P: 54 [place]: 170 QRS: 81 QRSD: 100 T: 254 QT: 340 QTc: 426 Interpretive Statements Sinus rhythm Probable left atrial enlargement Borderline right axis deviation Nonspecific repol abnormality, diffuse leads Baseline wander in lead(s) II,III,aVL,aVF Compared to ECG 06/24/2020 17:54:55 no change Electronically Signed On 06-30-2020 13:34:23 CDT by Fred Oliva [email or web address] <ELECTRONICALLY SIGNED> By: Fred Oliva MD, [facility] 06/30/20 1334 3 Fred Oliva MD, [facility] /EPI
[2020-06-30 15:50] VITALS: BP 124/66
[2020-06-30 15:55] VITALS: BP 95/40
[2020-06-30 20:00] VITALS: BP 106/60
[2020-07-01 00:19] VITALS: BP 118/62
[2020-07-01 02:06] LABS: HEPATITIS B SURFACE AG Negative (Negative)
[2020-07-01 04:00] VITALS: BP 120/62
[2020-07-01 04:39] LABS: ABSOLUTE LYMPHOCYTES 0.1 thou/uL (0.8-5.3); ABSOLUTE MONOCYTES 0.5 thou/uL (0.0-1.2); ABSOLUTE NEUTROPHILS 9.8 thou/uL (1.6-8.1); HEMATOCRIT 27.5 % (42.0-52.0); HEMOGLOBIN 9.5 gm/dL (14.0-18.0); LYMPHOCYTES 1.2 %; MCHC 34.6 g/dL (28.0-37.0); MCV 89.6 fL (80.0-100.0); MONOCYTES 4.7 %; MPV 9.1 fl. (7.2-11.1); NUCLEATED RBCS 0 /100WBC; PLATELET COUNT* 178 thou/uL (150-400); POLYS 94.1 %; RBC 3.07 mil/uL (4.50-6.00); RDW-CV 13.9 % (10.5-14.5); WBC 10.4 thou/uL (4.0-11.0)
[2020-07-01 04:57] LABS: ALBUMIN 2.4 g/dL (3.4-5.0); CALCIUM 9.1 mg/dL (8.5-10.1); MAGNESIUM 3.1 mg/dL (1.8-2.4); POTASSIUM 4.4 mmol/L (3.5-5.1); TOTAL BILIRUBIN 0.9 mg/dL (<0.1-1.0); TOTAL PROTEIN 6.2 g/dL (6.4-8.2)
[2020-07-01 04:58] LABS: CREATININE 9.3 mg/dL (0.6-1.3)
[2020-07-01 08:00] VITALS: BP 125/66
[2020-07-01 13:11] VITALS: BP 92/57
--- NOTE | 2020-07-01 14:31 | CON ---
[address] [address] CONSULTATION Name: SONIA BARRIENTOSDEONDRE Room: [address] IN .R.#: [id number] Admission: 06/28/20 Attend Phys: Ramana Dorado MD Discharge: Date of : 57 Report #: [id number] THIS REPORT FOR: //name// cc: Jhony Guadalupe MD, Khanh MD ~ THIS REPORT FOR: //name// DATE OF SERVICE: 06/30/2020 Consult has been requested by Dr. Parker. INDICATION FOR CONSULTATION: Acute respiratory failure secondary to COVID-19 pneumonia. HISTORY OF PRESENT ILLNESS: This is a 64-year-old gentleman whose past medical history includes a history of end-stage renal disease as well as coronary artery disease with congestive heart failure. His last echo from 2013 that I have available shows a left ventricular ejection fraction of 35-40%. The patient was now admitted earlier this month to this hospital, was treated for COVID-19. Did receive steroids as well as azithromycin. The patient was not hypoxemic and therefore did not receive remdesivir or convalescent plasma. He subsequently was discharged, however, became hypoxemic. O2 saturations dropped into the 70s and therefore was readmitted. Has now been treated with Solu-Medrol. He has in addition been started on remdesivir. Initially, he was reported to have had high-grade fevers as well as a cough with small amounts of sputum production and acute shortness of breath. The patient also is reported to have been having diarrhea. He does have end-stage renal disease and gets hemodialysis on a Tuesday, , Tuesday schedule. The patient initially was maintaining O2 saturation at 5 liters nasal cannula. This increased this morning to 10 mL. The patient at one point dropped O2 saturation to 90% on 10 liters nasal cannula. When I saw this patient, I was considering reviewing with Nephrology this morning regarding requesting an additional dialysis today for fluid removal and also if convalescent plasma is administered, the patient would need dialysis at the same time. The patient, however, at that time was fairly comfortable at lunchtime sitting in a chair and was in fact saturating 97% on 10 liters nasal cannula as checked by the SPIKE DRIVER. This reading, however, is not charted in [facility]. Therefore, I decided to hold off on reviewing with Nephrology. The patient's antibiotics were broadened by the primary service this morning and I did agree with it and did not make any change. This evening, I noticed the patient was charted to again be 90% on 10 liters and therefore, I considered moving him to a negative pressure room for administration of a BiPAP; however, when the patient's RN rechecked the patient's O2 saturation, he in fact is now saturating 95% on 5 liters nasal cannula and therefore, I held off on the same. The patient's blood pressure is acceptable, however, has been on the lower side. [place] [address] CONSULTATION Name: SANDRA BARRIENTOSZeny FRIEDMAN Room: [address] IN .R.#: [id number] Admission: 06/28/20 Attend Phys: Ramana Dorado MD Discharge: Date of : 57 Report #: [id number] 12 questions for review of systems except as mentioned above. PAST MEDICAL HISTORY: Coronary artery disease status post CABG; congestive heart failure, last available echo from 2013 shows a left ventricular ejection fraction of 35-40%. He may have had more echo since I do not have those available. He had a device implanted in his chest at one point. I do not have details available. The chest x-rays now do not show any device; however, there is a wire, which still is going into his left ventricle. Diabetes, hypertension, hyperlipidemia, cataract surgery, retinal detachment requiring surgery, other eye surgeries, renal failure, chronic. Has a fistula in the left arm. ALLERGIES: No known drug allergies. SOCIAL HISTORY: No known history of smoking, ethanol abuse or drug abuse. CURRENT MEDICATIONS: List in [facility] reviewed. HOME MEDICATIONS: List in [facility] reviewed. FAMILY HISTORY: There is no pertinent family history. PHYSICAL EXAMINATION: GENERAL: He is alert, awake and oriented. Did not appear to be in any distress. His O2 saturations are as described above. VITAL SIGNS: His last pulse was 63 and a blood pressure 110/55, respiratory rate 18-20. His temperature is 37.2. HEENT: Head is normocephalic and atraumatic. NECK: Does not show raised JVP, asymmetry, mass or lymph nodes. CHEST: Symmetrical expansion on inspection and palpation. On auscultation, there are occasional rales in bilateral lung bases. I do not hear any wheezes. HEART: Regular. There is no murmur. ABDOMEN: Soft and nontender. EXTREMITIES: Lower extremities showed 1+ edema, but there is no calf tenderness. SKIN: Dry and intact. NEUROLOGICAL: He moves all extremities bilaterally equally and spontaneously with no focal deficit identified. LABORATORY DATA: The patient's chest x-rays are reviewed and these do show, compared with the previous admission, increasing infiltrates. The patient did have a perfusion scan performed, which is unremarkable. The patient's lab work including CBC as well as chemistries are in [facility] and these are reviewed. Elevated blood glucose is noted. Elevated D-dimer noted. Arterial blood gas consistent with acute hypoxemic type 1 respiratory failure in [facility], reviewed. COVID-[place] [address] CONSULTATION Name: SONIA BARRIENTOS IDALIA Room: [address] IN [facility]#: [id number] Admission: 06/28/20 Attend Phys: Ramana Dorado MD Discharge: Date of : 57 Report #: [id number] ASSESSMENT AND PLAN: 1. Acute hypoxemic respiratory failure secondary to COVID-19 pneumonia. I agree with Solu-Medrol as currently prescribed. We will continue with the current dose. I feel that the administration of Brovana via a nebulizer will be more effective for this patient as compared with albuterol via metered-dose inhaler. Therefore, I recommended that a scrubber be placed in the patient's room to reduce virus aerosolization and then he be administered Brovana. So if the patient's respiratory status worsen, then I would consider transferring him to a negative pressure room for BiPAP while asleep. 2. COVID-19. Note that the patient is on remdesivir. The safety of remdesivir for a GFR less than 30 is not established. The diluent of remdesivir also does accumulate in renal failure. The risks with this, if any, are unknown. Still at this point, the potential benefit of giving him remdesivir appears to be greater than the risks and therefore, I continued with the same. I would, however, go ahead and give him convalescent plasma with the dialysis tomorrow and then reevaluate after dialysis. If he is doing better, then we potentially could skip the last dose of remdesivir. 3. Pulmonary infiltrates. I agree with continuing current antibiotic therapy. We will continue with Zosyn. He had received azithromycin recently and therefore atypical infection will be unlikely. Doxycycline does have activity against methicillin-resistant Staphylococcus aureus; however, this is much less than with vancomycin and linezolid. Therefore, I recommend checking a nasal swab for methicillin-resistant Staphylococcus aureus. In case the patient fails to improve or if his condition deteriorates, then I would in that case recommend switching doxycycline over to either linezolid or vancomycin. 4. End-stage renal disease. He has a hemodialysis tomorrow. I discontinued his Norvasc so that fluid removal could be facilitated with dialysis tomorrow. Note that there is no hold option available in the [facility]. 5. Coronary artery disease with congestive heart failure. Left ventricular ejection fraction 35-40% in 2014. May consider obtaining a repeat echocardiogram as no recent echo is available. 6. Elevated D-dimer. The perfusion scan is unremarkable. I would also like to obtain venous Dopplers. Thanks for this consultation. <ELECTRONICALLY SIGNED> By: Jose Vicente MD 07/01/201430 31 liza Vicente MD /nt
[2020-07-01 16:00] VITALS: BP 147/75
[2020-07-01 19:30] VITALS: BP 136/84
[2020-07-02] VITALS: BP 142/72
[2020-07-02 04:00] VITALS: BP 139/70
[2020-07-02 08:00] VITALS: BP 113/51
[2020-07-02 08:42] LABS: CALCIUM 8.2 mg/dL (8.5-10.1); POTASSIUM 4.3 mmol/L (3.5-5.1)
[2020-07-02 08:49] LABS: CREATININE 6.4 mg/dL (0.6-1.3)
[2020-07-02 12:12] VITALS: BP 124/61
[2020-07-02 16:00] VITALS: BP 135/66
[2020-07-02 20:35] VITALS: BP 132/62
[2020-07-03] VITALS: BP 139/63
[2020-07-03 04:00] VITALS: BP 140/71
[2020-07-03 04:32] LABS: HEMATOCRIT 24.3 % (42.0-52.0); HEMOGLOBIN 8.2 gm/dL (14.0-18.0); MCH 30.5 pg (26.0-34.0); MCHC 33.8 g/dL (28.0-37.0); MCV 90.3 fL (80.0-100.0); MPV 8.5 fl. (7.2-11.1); RBC 2.69 mil/uL (4.50-6.00); WBC 7.2 thou/uL (4.0-11.0)
[2020-07-03 05:26] LABS: CALCIUM 8.5 mg/dL (8.5-10.1); TOTAL BILIRUBIN 0.7 mg/dL (<0.1-1.0); TOTAL PROTEIN 5.4 g/dL (6.4-8.2)
[2020-07-03 05:36] LABS: CREATININE 5.4 mg/dL (0.6-1.3)
[2020-07-03 08:30] VITALS: BP 129/69
[2020-07-03 11:50] VITALS: BP 141/75
[2020-07-03 16:00] VITALS: BP 113/68
[2020-07-03 20:00] VITALS: BP 110/65
[2020-07-04] VITALS (7 sets, daily range): BP systolic 112–128; BP diastolic 50–61
[2020-07-04] MEDS ORDERED: PREDNISONE 10 M10 MG PO (07:51)
[2020-07-04] MEDS ORDERED: VENTOLIN HFA 1818 GM INH (07:51)
[2020-07-04] MEDS ORDERED: MUCINEX600 MG PO (07:51)
[2020-07-04] MEDS ORDERED: LEVOFLOXACIN500 MG PO (07:51)
[2020-07-04 08:22] LABS: HEMATOCRIT 24.1 % (42.0-52.0); HEMOGLOBIN 8.3 gm/dL (14.0-18.0); MCHC 34.4 g/dL (28.0-37.0); MCV 90.1 fL (80.0-100.0); MPV 8.3 fl. (7.2-11.1); RBC 2.68 mil/uL (4.50-6.00); RDW-CV 14.4 % (10.5-14.5); WBC 8.2 thou/uL (4.0-11.0)
[2020-07-04 08:34] LABS: ALBUMIN 2.1 g/dL (3.4-5.0); CALCIUM 8.6 mg/dL (8.5-10.1); CREATININE 4.9 mg/dL (0.6-1.3); POTASSIUM 4.5 mmol/L (3.5-5.1); TOTAL BILIRUBIN 0.7 mg/dL (<0.1-1.0); TOTAL PROTEIN 5.6 g/dL (6.4-8.2)
== END 2020-07-04 19:17 | disposition home health service (06) | DRG 177 ==
LOC: M.ERS 03:51 → M.2W 05:24 → M.TBA-ER 05:24 → M.2W 13:45
PROVIDERS: Internal Medicine; Internal Medicine Critical Care Medicine; Internal Medicine Nephrology; Personal Emergency Response Attendant; ADMIT Internal Medicine; ATTEND Internal Medicine
PROC: 5A1D70Z Performance of Urinary Filtration, Intermittent, Less than 6 Hours Per Day (ICD-10-PCS; principal; 2020-07-01)
PROC: XW033E5 Introduction of Remdesivir Anti-infective into Peripheral Vein, Percutaneous Approach, New Technology Group 5 (ICD-10-PCS; principal; 2020-07-01)
PROC: XW13325 Transfusion of Convalescent Plasma (Nonautologous) into Peripheral Vein, Percutaneous Approach, New Technology Group 5 (ICD-10-PCS; principal; 2020-07-01)
PROC: 5A1D70Z Performance of Urinary Filtration, Intermittent, Less than 6 Hours Per Day (ICD-10-PCS; 2020-07-02)
DX: U07.1 COVID-19 (principal); J12.89 Other viral pneumonia; E43 Unspecified severe protein-calorie malnutrition; J96.01 Acute respiratory failure with hypoxia; N18.6 End stage renal disease; J15.9 Unspecified bacterial pneumonia; R65.10 Systemic inflammatory response syndrome (SIRS) of non-infectious origin without acute organ dysfunction; I13.2 Hypertensive heart and chronic kidney disease with heart failure and with stage 5 chronic kidney disease, or end stage renal disease; E78.5 Hyperlipidemia, unspecified; I50.9 Heart failure, unspecified; E11.22 Type 2 diabetes mellitus with diabetic chronic kidney disease; I25.10 Atherosclerotic heart disease of native coronary artery without angina pectoris; D64.9 Anemia, unspecified; Z95.1 Presence of aortocoronary bypass graft; Z98.42 Cataract extraction status, left eye; Z98.41 Cataract extraction status, right eye; Z79.84 Long term (current) use of oral hypoglycemic drugs; Z79.82 Long term (current) use of aspirin; Z79.899 Other long term (current) drug therapy; Z68.23 Body mass index [BMI] 23.0-23.9, adult

== ENCOUNTER 2020-07-08 15:03 | Emergency (ER) | payer MEDICARE ==
[~2020-07-08] VITALS: Ht 162.6 cm; Wt 63.5 kg
[~2020-07-08 15:03] MED LIST changes: +LEVOFLOXACIN500 MG PO; +MUCINEX600 MG PO; +VENTOLIN HFA 1818 GM INH
[2020-07-08 15:08] VITALS: BP 118/59
[2020-07-08] MEDS ORDERED: RENAPLEX-D TAB1 EACH PO (15:11)
[2020-07-08] MEDS ORDERED: RENVELA800 MG PO (15:11)
[2020-07-08 15:32] LABS: MCH 29.6 pg (26.0-34.0); MCHC 31.8 g/dL (28.0-37.0); MCV 93.1 fL (80.0-100.0); MPV 7.1 fl. (7.2-11.1); NUCLEATED RBCS 1 /100WBC; PLATELET COUNT* 324 thou/uL (150-400); RBC 1.28 mil/uL (4.50-6.00); RDW-CV 14.5 % (10.5-14.5)
[2020-07-08 15:35] LABS: HEMOGLOBIN 3.8 gm/dL (14.0-18.0); WBC 49.2 thou/uL (4.0-11.0)
[2020-07-08 15:41] LABS: APTT 32.7 Seconds (25.0-31.3); INR 1.2; PROTIME 12.3 Seconds (9.20-11.50)
[2020-07-08 15:48] LABS: CALCIUM 8.4 mg/dL (8.5-10.1); CREATININE 4.8 mg/dL (0.6-1.3); POTASSIUM 3.8 mmol/L (3.5-5.1)
[2020-07-08 15:52] LABS: ALBUMIN 2.5 g/dL (3.4-5.0); TOTAL BILIRUBIN 0.5 mg/dL (<0.1-1.0); TOTAL PROTEIN 5.5 g/dL (6.4-8.2)
[2020-07-08 16:28] LABS: ABSOLUTE MONOCYTES 3.9 thou/uL (0.0-1.2); ABSOLUTE NEUTROPHILS 44.3 thou/uL (1.6-8.1); ANISOCYTOSIS 1+; HYPOCHROMASIA 1+; PLATELET ESTIMATE ADEQUATE
--- NOTE | 2020-07-08 17:51 | NUR ---
BLOOD TRANSFUSION STARTED STARTED AT 1730, PRBC UNIT #1
[2020-07-08 19:44] VITALS: BP 111/61
--- NOTE | 2020-07-09 13:44 | EKG ---
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
== END 2020-07-08 19:52 | disposition short-term general hospital (02) ==
LOC: M.ERS 15:03 → M.TBA-ER 16:47 → M.ERS 16:47
PROVIDERS: Emergency Medicine
DX: K92.2 Gastrointestinal hemorrhage, unspecified (principal); Z20.828 Contact with and (suspected) exposure to other viral communicable diseases; D72.829 Elevated white blood cell count, unspecified; R55 Syncope and collapse; D64.9 Anemia, unspecified; I12.0 Hypertensive chronic kidney disease with stage 5 chronic kidney disease or end stage renal disease; E11.22 Type 2 diabetes mellitus with diabetic chronic kidney disease; N18.6 End stage renal disease; E78.5 Hyperlipidemia, unspecified; Z99.2 Dependence on renal dialysis

== ENCOUNTER → 2020-07-17 | Outpatient (CLI) | payer MEDICARE ==
[~2020-07-17] MED LIST changes: +RENAPLEX-D TAB1 EACH PO; +RENVELA800 MG PO
[2020-07-17 16:26] VITALS: BP 167/78
[2020-07-17 17:15] VITALS: BP 133/61
--- NOTE | 2020-07-24 13:15 | OP ---
[address] [address] OPERATIVE REPORT Name: SONIA BARRIENTOS Room: [facility]#: [id number] Admission: 07/17/20 Attend Phys: Nic Mijares MD Discharge: Date of : 57 Report #: [id number] THIS REPORT FOR: //name// cc: Jhony Guadalupe MD, Khanh MD ~ CC: Jhony Mijares DATE OF SERVICE: 07/17/2020 PREOPERATIVE DIAGNOSIS: Thrombosed right arm arteriovenous fistula. POSTOPERATIVE DIAGNOSIS: Thrombosed right arm arteriovenous fistula. PROCEDURE: 1. Fistulogram, right upper extremity. 2. Thrombolysis fistula, right upper extremity. 3. Thrombectomy arteriovenous fistula, right upper extremity. 4. Angioplasty and stenting, proximal right cephalic vein outflow. 5. Angioplasty and stenting, subclavian vein stenosis. 6. Angioplasty superior vena cava, total chronic occlusion. FINDINGS ON FISTULOGRAM: 1. Arteriovenous fistula, right upper extremity, is thrombosed. 2. There is significant stenosis of the cephalic vein outflow just proximal to the access zone. 3. There is chronic occlusion of the proximal cephalic vein at the confluence with the axillary vein. 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 4. Central venogram reveals widely patent internal jugular vein and occluded superior vena cava. 5. After intervention, there is widely patent flow through the cephalic vein outflow into the axillary vein, subclavian veins and down through the recannulated superior vena cava. SURGEON: Nic Mijares MD INSPECTOR EXHAUST EMISSIONS: None. ANESTHESIA: Local. COMPLICATIONS: None. ESTIMATED BLOOD LOSS: 100 mL. SPECIMEN: None. [address] [address] OPERATIVE REPORT Name: SONIA BARRIENTOS Room: [facility]#: [id number] Admission: 07/17/20 Attend Phys: Nic Mijares MD Discharge: Date of : 57 Report #: [id number] INDICATIONS FOR PROCEDURE: The patient is a very pleasant 64-year-old male who has a right upper extremity brachiocephalic AV fistula, which I placed several years ago. He has undergone one previous fistulogram 2 years ago by my partner, Dr. Hammonds, who performed angioplasty of a central venous stenosis. He has done well since then. For the past 2 years, using his fistula without issue. We had had a call about a month ago from him needing a fistulogram. Unfortunately, this was not able to be scheduled and he is now thrombosed. We plan to take him today for emergent thrombectomy and fistulogram, so he can do dialysis tomorrow. Informed consent was obtained from the patient with risks including, but not limited to bleeding, pain, , heart attack, stroke, steal syndrome. The patient understood these risks and was agreeable to proceed. We will use local anesthetic only as he is not n.p.o. DESCRIPTION OF PROCEDURE: The patient was taken emergently to the interventional suite. He was placed in supine position. Right arm was prepped and draped in usual sterile fashion. Timeout was performed. In the preoperative holding area prior to going to the procedure room, I did inject 2 mg of TPA throughout the access zone of the fistula. I massaged this into the thrombus. I got excellent results with pulsatile flow returned into the thrombosed portion of the access zone. In the procedure room, I infused 10 mL of 1% lidocaine throughout the procedure for local anesthetic. I accessed AV fistula in antegrade fashion near the arterial anastomosis. I used Seldinger technique to exchange out for an 8-Congolese sheath. I performed fistulogram, findings noted above. I performed thrombectomy of the remaining thrombus within the access zone. Using a wire and catheter, I carefully crossed the stenosis within the cephalic vein. I angioplastied this with an 8 and then 10 mm balloon. I worked my way up to the total chronic occlusion of the proximal cephalic vein, axillary, subclavian and superior vena cava. I slowly worked my way through each of these areas of occlusion, crossing and confirming I was in the true lumen. At one point, it did pop out of the vein, but was able to recannulate distal in the true lumen. After I crossed the occlusion of the superior vena cava, I confirmed I was in the right atrium with atrial angiogram. I dilated all these areas with 10 mm balloon. I upsized to a 14 mm balloon centrally. I now had a channel through these total chronically occluded areas. I knew that this channel was not going to stay up a long-term. For this reason, I chose to stent him. Unfortunately, we were very limited in our access fistula stent grafts and the reps were unavailable to bring more. I placed a 12 x 80 Fluency stent across the main area of occlusion extending from the proximal cephalic vein into the confluence and across the confluence with the axillary/subclavian veins. I post-dilated this with a 10 mm balloon. There was still some area of occlusion proximal and distal to the stent. I extended it proximally and distally, proximally I extended it with a 14 x 40 E-Luminexx and distally I extended it with a 12 x [address] [place] [address] OPERATIVE REPORT Name: SONIA BARRIENTOS Room: [facility]#: [id number] Admission: 07/17/20 Attend Phys: Nic Mijares MD Discharge: Date of : 57 Report #: [id number] E-Luminexx stent. I would prefer to use a covered stent graft in these areas; however, these were unavailable to me and the sizes I needed today and without some sort of stent popping this opened, it was not going to stay open. I post-dilated all these stents with a 10 mm balloon. I used a 14 mm balloon on the central portion. Completion imaging showed excellent result. I did not stent the superior vena cava. It took a 14 balloon quite well and the flow was much improved through it upon completion. The patient now had a palpable thrill in his fistula. I repeated my pictures of the fistulized portion of the access zone and there was no residual thrombus. I removed my sheath and placed a Monocryl stitch in the skin. There was no bleeding or hematoma. I did evaluate the arterial anastomosis when there was no thrombus or stenosis at that location either. The patient can use his fistula tomorrow for dialysis. We will plan to repeat fistulogram in 3 months to make sure there is no recurrence or restenosis. <ELECTRONICALLY SIGNED> By: Nic Mijares MD 07/24/20 1315 1710 Tamara9Nic Mijares MD /enzo
== END ==
LOC: M.INT 13:29
PROVIDERS: ATTEND Surgery Vascular Surgery
DX: T82.868A Thrombosis due to vascular prosthetic devices, implants and grafts, initial encounter (principal); I13.2 Hypertensive heart and chronic kidney disease with heart failure and with stage 5 chronic kidney disease, or end stage renal disease; E11.22 Type 2 diabetes mellitus with diabetic chronic kidney disease; N18.6 End stage renal disease; E78.5 Hyperlipidemia, unspecified; Z98.890 Other specified postprocedural states; Z79.899 Other long term (current) drug therapy; Z95.1 Presence of aortocoronary bypass graft; Z82.49 Family history of ischemic heart disease and other diseases of the circulatory system; Z83.3 Family history of diabetes mellitus; Y83.8 Other surgical procedures as the cause of abnormal reaction of the patient, or of later complication, without mention of misadventure at the time of the procedure

== ENCOUNTER → 2020-09-01 | Outpatient (CLI) | payer MEDICARE ==
[2020-09-02 02:06] LABS: GLYCOHEMOGLOBIN (HGB A1C) 6.9 % (4.8-5.6)
== END ==
LOC: M.LAB 08:42
PROVIDERS: ATTEND Internal Medicine
DX: E11.69 Type 2 diabetes mellitus with other specified complication (principal)

== ENCOUNTER → 2020-11-28 | Outpatient (CLI) | payer MEDICARE ==
[2020-11-28 07:06] LABS: CHOLESTEROL 111 mg/dL (<200); HDL CHOLESTEROL 39 mg/dL (>40); LDL CHOLESTEROL 41 mg/dL (<100); TC:HDL 2.8 Ratio (Not establshd); TRIGLYCERIDE 158 mg/dL (<150); VLDL 32 mg/dL (<40)
[2020-11-28 07:08] LABS: SERUM ASSESSMENT Clear
== END ==
LOC: M.LAB 06:31
PROVIDERS: ATTEND Internal Medicine Interventional Cardiology
DX: E78.2 Mixed hyperlipidemia (principal)